=== PATIENT | female | born 1940 | race Caucasian/White ===

== ENCOUNTER → 2018-04-27 | Outpatient (CLI) | payer OTHER ==
[~2018-04-27] MED LIST: ALDACTONE25 MG PO; ALLOPURINOL 30300 M1 PO; AMLODIPINE BESYL5 MG PO; ANTACID500 MG PO; ASA5UEC PO; ASPIR 8181 MG PO; ASPIRIN EC81 M1 PO; ASPIRIN325; ASPIRIN325 PO; ASPIRIN81 M2 PO; BIOTIN-D1 GM PO; BIOTIN2500 MCG PO; CALCIUM; CALCIUM-MAG-ZI1 EACH PO; CITRACAL + D C1 EACH; ELEMENTAL CALC600 MG PO; FISH OIL 1,0001 EAC5 PO; FISH OIL 1,0001 EAC7 PO; FUROSEMIDE 40 M40 M1 PO; GLUCOSAMINE HC500 MG PO; GLUCOSAMINE1000 MG PO; IMDUR 30 MG TAB30 M1 PO; IRON159 MG PO; IRON236 MG PO; ISOSORBIDE; ISOSORBIDE MONO60 M1 PO; LASIX 40 MG TAB40 M2 PO; LIPITOR 20 MG T20 M1 PO; LOPRESSOR 50 MG50 M1 PO; LOPRESSOR100 MG PO; LOPRESSOR50 PO; MULTIVITAMINS1 EAC7 PO; NIASPAN 500 MG500 M1 PO; NIASPAN ER 101000 M1 PO; NIASPAN PO; NITROGLYCERIN0.4 MG SL; NITROGLYCERIN0.4 MG SUBLING; OMEPRAZOLE40 MG PO; PLAVIX 75 MG TA75 M1 PO; PLAVIX 75 MG TA75 MG PO; PRILOSEC 20 MG20 MG PO; PROTONIX40 M1 PO; PROTONIX40 M2 PO; RANEXA 500 MG500 M1 PO; RANEXA1000 MG PO; SIMVASTATIN40 MG PO; SYNTHROID50 MCG PO; TOPAMAX 25 MG T25 M1 PO; VITAMIN D1000 UNI1 PO; VITAMIN D2000 UNIT PO; VITAMIN D3400 UNIT PO; ZETIA10 MG PO
== END ==
LOC: CAT 06:11
PROVIDERS: Specialist
DX: R10.32 Left lower quadrant pain (principal)

== ENCOUNTER → 2019-04-16 | Outpatient (CLI) | payer OTHER | LOC: NUC 07:03 | DX: I25.10 Atherosclerotic heart disease of native coronary artery without angina pectoris (principal); I44.7 Left bundle-branch block, unspecified; I49.3 Ventricular premature depolarization; I10 Essential (primary) hypertension; I73.9 Peripheral vascular disease, unspecified; E78.5 Hyperlipidemia, unspecified; Z86.79 Personal history of other diseases of the circulatory system; Z95.5 Presence of coronary angioplasty implant and graft; Z87.891 Personal history of nicotine dependence; Z88.0 Allergy status to penicillin; Z82.49 Family history of ischemic heart disease and other diseases of the circulatory system ==

== ENCOUNTER → 2019-11-19 | Outpatient (CLI) | payer OTHER | LOC: NUC 07:30 → CV 19:53 | DX: R07.9 Chest pain, unspecified (principal); R55 Syncope and collapse; I11.0 Hypertensive heart disease with heart failure; I25.119 Atherosclerotic heart disease of native coronary artery with unspecified angina pectoris; I73.9 Peripheral vascular disease, unspecified; I48.91 Unspecified atrial fibrillation; I50.9 Heart failure, unspecified; Z95.5 Presence of coronary angioplasty implant and graft; Z79.899 Other long term (current) drug therapy ==